=== PATIENT | female | born 1955 | race African-American/Black ===

== ENCOUNTER 2016-11-26 04:23 | Emergency (ER) | payer MEDICAID ==
[~2016-11-26] VITALS: Ht 154.9 cm; Wt 67.6 kg
[~2016-11-26 04:23] MED LIST: ACETAMINOPHEN325 M1 ORAL; ALBUTEROL2.5 MG/3 M INH; AMLODIPINE BESY10 MG ORAL; ASPIR 8181 MG ORAL; ASPIRIN EC325 MG ORAL; ASPIRIN EC81 MG ORAL; ATORVASTATIN CA40 MG ORAL; BACTRIM DS TAB1 EAC1 ORAL; BENAZEPRIL HCL40 MG ORAL; CARDIZEM90 MG ORAL; CATAPRES0.1 MG ORAL; CLONIDINE0.1 MG ORAL; COLACE100 MG ORAL; COUMADIN5 MG ORAL; DIABETA5 MG ORAL; DOC-Q-LACE100 M1 ORAL; FERROUS SULFAT325 MG ORAL; GLIPIZIDE5 MG ORAL; HYDROMORPHO2 MG/1 M5 IV; IBUPROFEN200 M2 ORAL; IMITREX50 MG ORAL; LAMICTAL100 MG ORAL; LANTUS SOL100 UNIT/1 SUBQ; LEVEMIR FL100 UNIT/1 SUBQ; LIPITOR40 MG NG; LIPITOR80 MG ORAL; LISINOPRIL40 MG ORAL; MARINOL2.5 MG ORAL; METFORMIN HCL1000 M1 ORAL; METFORMIN HCL500 M1 ORAL; METOPROLOL TAR100 MG NG; NORCO1 E1 ORAL; NORMODYNE100 MG ORAL; NOVOLOG100 UNITS1 SUBQ; Nitroglycerin TDERMAL; OMEGA-3100 M1 PO; PROCHLORPERAZINE5 MG ORAL; PROTONIX40 M2 NG; SEROQUEL200 MG ORAL; ZOFRAN ODT4 MG ORAL
[2016-11-26] MEDS ORDERED: POLYETHYLENE GL17 GM ORAL (04:49)
[2016-11-26] MEDS ORDERED: TEMAZEPAM7.5 MG ORAL (04:49)
[2016-11-26] MEDS ORDERED: ARTIFICIAL TEA1 EAC2 OP (04:49)
[2016-11-26] MEDS ORDERED: HUMALOG100 UNIT/3 SUBQ (04:49)
[2016-11-26] MEDS ORDERED: IMITREX50 MG ORAL (04:49)
--- NOTE | 2016-11-26 05:06 | Emergency Room Report ---
History of Present Illness General Chief Complaint: Multiple Trauma/Fall Source: Patient, Medical Record Present Illness HPI This is a 61-year-old female from a senior living. She has a history hypertension and diabetes. She got up and tripped and fell and hit her head against the wall. No loss of consciousness. She is a poor historian so senior living center to be evaluated. She complaining of pain to the right side of her head. No other injury. No nausea no vomiting. No fever or chills. Pain is 7/10. Allergies: Coded Allergies: No Known Allergies (Unverified , 10/28/13) Patient History Past Medical History: see triage record, old chart reviewed, DM Past Surgical History: other Pertinent Family History: none Social History: Denies: smoking Now: No Immunizations: other Reviewed Nursing Documentation: PMH: Agreed, PSxH: Agreed Nursing Documentation-PMH Hx Hypertension: Yes - Hyperparathyroidism, Hyperlipidemia Hx COPD: Yes Hx Diabetes: Yes Hx Gastrointestinal Problems: Yes - GERD, Dysphagia History Of Psychiatric Problem: Yes - Unspecified psychosis Hx Headaches: Yes - Migraine Review of Systems Eye: Denies: eye pain, blurred vision ENT: Denies: ear pain, nose congestion, throat swelling Respiratory: Denies: cough, shortness of breath Cardiovascular: Denies: chest pain, palpitations Gastrointestinal: Denies: abdominal pain, diarrhea, nausea, vomiting Musculoskeletal: Denies: back pain, joint pain Skin: Denies: rash Neurological: Denies: headache, numbness Endocrine: Denies: increased thirst, increased urine Hematologic/Lymphatic: Denies: easy bruising All Other Systems: negative except mentioned in HPI Physical Exam Vital Signs Date Time Temp Pulse Resp B/P (MAP) Pulse Ox O2 Delivery O2 Flow Rate FiO2 11/26/16 04:24 84 14 174/82 94 Room Air vitals was high blood pressure Sp02 EP Interpretation: reviewed, normal General Appearance: well appearing, no apparent distress, alert Head: normocephalic, atraumatic, other - Mild tenderness to the right parietal area. No evidence of any trauma. Eyes: bilateral eye PERRL, bilateral eye EOMI ENT: hearing grossly normal, normal pharynx Neck: full range of motion, supple, no meningismus Respiratory: chest non-tender, lungs clear, normal breath sounds Cardiovascular #1: regular rate, rhythm, no murmur Gastrointestinal: normal bowel sounds, non tender, no mass, no organomegaly, no bruit, non-distended Musculoskeletal: back normal, gait/station normal, normal range of motion Psychiatric: mood/affect normal Skin: warm/dry Medical Decision Making Diagnostic Impression: Primary Impression: Head injury, acute Qualified Codes: S09.90XA - Unspecified injury of head, initial encounter ER Course Patient with head injury. No evidence of any bleed or skull fracture. Head CT negative we'll send back. CT/MRI/US Diagnostic Results CT/MRI/US Diagnostic Results : Imaging Test Ordered: CT head Impression read by radiologist as negative. Last Vital Signs Date Time Temp Pulse Resp B/P (MAP) Pulse Ox O2 Delivery O2 Flow Rate FiO2 11/26/16 04:24 84 14 174/82 94 Room Air Status: improved Disposition: XFER SNF Condition: Stable Additional Instructions: followup with your doctor as needed. Return if worse. AMAYA SCHMITZ M.D. Nov 26, 2016 05:06
[2016-11-26 06:24] VITALS: BP 174/82
[2016-11-26 06:42] VITALS: BP 185/82
--- NOTE | 2016-11-26 09:47 | Diagnostic Imaging Report ---
Indication: Head trauma. Headache Technique: Contiguous 5 mm thick transaxial imaging of the head obtained in a Siemens Sensation [address] scanner. Soft tissue and bone windows generated. Total Dose length Product (DLP): [address] Dose Index Volume (CTDIvol): 70.38 mGy Comparison: 10/07/15 Findings: There is mild prominence of the ventricles, basal cisterns, and cerebral sulci consistent with atrophy. Moderate, nonspecific, white matter hypoattenuation is noted throughout the brain consistent with chronic small vessel disease. Suggestion of old lacunar infarcts involving the right urbano radiata/basal ganglia. There is no midline shift, edema, acute hemorrhage, mass effect, or abnormal extra-axial fluid collections. Bones and extra osseous soft tissues are unremarkable. Impression: No acute intracranial bleed, mass effect or edema. 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 Moderate atrophy of the brain. Evidence of chronic small vessel disease involving white matter tracts. There are no interval change [facility] has communicated the preliminary results to the Emergency Department. Their findings are largely concordant with this report. The CT scanner at [facility] is accredited by the [employer] and the scans are performed using dose optimization techniques as appropriate to a performed exam including Automatic Exposure control.
== END 2016-11-26 06:45 ==
LOC: EDUNIT# 04:23 → EDBD 04:23 → EMR 05:05
DX: S09.90XA Unspecified injury of head, initial encounter (principal); W01.10XA Fall on same level from slipping, tripping and stumbling with subsequent striking against unspecified object, initial encounter; Y93.9 Activity, unspecified; Y92.129 Unspecified place in nursing home as the place of occurrence of the external cause; I10 Essential (primary) hypertension; E11.9 Type 2 diabetes mellitus without complications; J44.9 Chronic obstructive pulmonary disease, unspecified; K21.9 Gastro-esophageal reflux disease without esophagitis; G31.9 Degenerative disease of nervous system, unspecified
CPT/HCPCS: 70450; 99284

== ENCOUNTER 2017-03-25 11:46 | Emergency (ER) | payer MEDICAID ==
[~2017-03-25] VITALS: Ht 165.1 cm; Wt 90.7 kg
[~2017-03-25 11:46] MED LIST changes: +ARTIFICIAL TEA1 EAC2 OP; +HUMALOG100 UNIT/3 SUBQ; +POLYETHYLENE GL17 GM ORAL; +TEMAZEPAM7.5 MG ORAL
[2017-03-25 12:03] VITALS: BP 155/64
[2017-03-25 12:10] VITALS: BP 154/74
--- NOTE | 2017-03-25 12:34 | Emergency Room Report ---
History of Present Illness General Chief Complaint: General Complaint Source: Medical Record, EMS, PMD Present Illness HPI She presents from a retirement facility. She had undergone an arterial ultrasound to assess for chronic lower extremity edema. The results of the ultrasound that showed mild stenosis and arterial system of the lower extremities with occluded left posterior tibial artery. The patient has no complaints. Allergies: Coded Allergies: No Known Allergies (Unverified , 03/25/17) Patient History Past Medical History: see triage record Social History: Denies: smoking, alcohol use, drug use Reviewed Nursing Documentation: PMH: Agreed, PSxH: Agreed Review of Systems All Other Systems: negative except mentioned in HPI Physical Exam Vital Signs Date Time Temp Pulse Resp B/P (MAP) Pulse Ox O2 Delivery O2 Flow Rate FiO2 03/25/17 11:41 98.8 80 20 158/83 94 Room Air Sp02 EP Interpretation: reviewed, normal General Appearance: no apparent distress, alert, GCS 15, non-toxic Head: normocephalic, atraumatic Eyes: bilateral eye normal inspection, bilateral eye PERRL ENT: hearing grossly normal, normal pharynx, no angioedema, normal voice Neck: full range of motion, supple/symm/no masses Respiratory: chest non-tender, lungs clear, normal breath sounds, speaking full sentences Cardiovascular #1: regular rate, rhythm, no edema Gastrointestinal: normal bowel sounds, non tender, soft, non-distended, no guarding, no rebound Rectal: deferred Musculoskeletal: back normal, normal range of motion, non-tender, swelling - + 1 pitting edema bilateral lower extremities. Skin is warm with normal color. Refill is less than 2 seconds. There is no cyanosis, mottling or pale skin findings. Neurologic: alert, oriented x3, responsive, motor strength/tone normal, sensory intact, speech normal Psychiatric: mood/affect normal, no suicidal/homicidal ideation Skin: normal color, no rash, warm/dry, well hydrated Medical Decision Making Diagnostic Impression: Primary Impression: Peripheral artery disease ER Course This patient has peripheral artery disease. Ultrasound shows mild stenosis throughout other than the left posterior tibial artery which is occluded. There is no sinus on exam. The feet are warm and there no skin changes. The patient is return to the retirement facility. The patient's primary care physician was notified. Her primary care physician will arrange outpatient workup and followup for this patient. At this time, there is no emergency medical condition and this patient does not require admission to hospital. Last Vital Signs Date Time Temp Pulse Resp B/P (MAP) Pulse Ox O2 Delivery O2 Flow Rate FiO2 03/25/17 12:03 98.8 72 13 155/64 96 Room Air Disposition: HOME, SELF-CARE Condition: Stable ASHLYN GILES D.O. Mar 25, 2017 12:34
[2017-03-25 16:06] VITALS: BP 146/70
== END 2017-03-25 16:06 | disposition home or self-care (01) ==
LOC: EDBD 11:46 → EMR 12:16 → MERGE 12:16 → EMR 16:06
DX: I73.9 Peripheral vascular disease, unspecified (principal); R60.0 Localized edema
CPT/HCPCS: 99283